=== PATIENT | male | born 1945 | race Caucasian/White ===

== ENCOUNTER 2019-02-06 12:53 | Outpatient (CLI) | payer BC ==
[2019-02-06 16:21] LABS: #Eosinphils 0.2 thou/uL (0.0-0.7); #Lymphocytes 1.2 thou/uL (1.20-3.40); #Monocytes 0.4 thou/uL (0.11-0.59); #Neutrophils 3.7 thou/uL (1.40-6.50); %Basophils 0.1 % (0.0-1.0); %Eosinophils 3.5 % (0.0-10.0); %Lymphocytes 21.6 % (21.0-51.0); %Monocytes 6.4 % (0.0-10.0); %Neutrophils 68.5 % (42.0-75.0); Mean Corpuscular HGB CONC 33.7 g/dL (32.0-36.0); Mean Corpuscular Hemoglobin 32.7 pg (27.0-31.0); Mean Corpuscular Volume 97.1 fL (78.0-98.0); Mean Platelet Volume 9.4 fL (7.4-10.4); Platelet Count 212 thou/uL (130-400); RBC Distribution Width 11.9 % (11.5-14.5); Red Blood Cell (RBC) Count 4.29 mill/uL (4.70-6.10); White Blood Cell (WBC) Count 5.4 thou/uL (4.8-10.8)
[2019-02-06 16:25] LABS: INR-International Normal Ratio 0.9; PTT 33.7 SEC (22.9-36.1); Prothrombin Time 12.5 SEC (12.0-14.7)
[2019-02-06 16:43] LABS: ALT (SGPT) 29 U/L (8-55); AST (SGOT) 33 U/L (5-34); Albumin 4.2 g/dL (3.4-4.8); Alkaline Phosphatase 57 U/L (40-150); Anion Gap 14 mmol/L (10-20); BUN (Urea Nitrogen) 19 mg/dL (8.4-25.7); Bilirubin, Total 0.8 mg/dL (0.2-1.2); Calc. Creatinine Clearance 0 mL/min (70-130); Calcium 9.4 mg/dL (7.8-10.44); Carbon Dioxide 29 mmol/L (23-31); Chloride 102 mmol/L (98-107); Estimated GFR-MDRD 50; Globulin 2.5 g/dL (2.4-3.5); Glucose 99 mg/dL (83-110); Protein, Total 6.7 g/dL (5.8-8.1); Sodium 141 mmol/L (136-145)
== END 2019-02-06 12:54 | disposition home or self-care (01) ==
LOC: LABBT 12:53
PROVIDERS: ATTEND Internal Medicine Cardiovascular Disease
DX: Z01.812 Encounter for preprocedural laboratory examination (principal); I25.10 Atherosclerotic heart disease of native coronary artery without angina pectoris
CPT/HCPCS: 80053; 85025; 85610; 85730

== ENCOUNTER → 2019-02-11 | Day surgery (SDC) | payer BC ==
[2019-02-06 14:16] VITALS: BMI 24.3
[~2019-02-11] MED LIST: Fentanyl 100 MCG/2 ML VIAL ONE; Iopamidol 370 76% 100 ML VIAL ONE; Lidocaine 1% (PF) 30 ML VIAL ONE; Midazolam HCl 2 mg/2 ml Vial ONE
== END ==
LOC: CCL 05:49
PROVIDERS: ATTEND Internal Medicine Cardiovascular Disease
PROC: B2111ZZ Fluoroscopy of Multiple Coronary Arteries using Low Osmolar Contrast (ICD-10-PCS; principal; 2019-02-11)
PROC: 4A023N7 Measurement of Cardiac Sampling and Pressure, Left Heart, Percutaneous Approach (ICD-10-PCS; principal; 2019-02-11)
PROC: B2181ZZ Fluoroscopy of Left Internal Mammary Bypass Graft using Low Osmolar Contrast (ICD-10-PCS; principal; 2019-02-11)
PROC: B2171ZZ Fluoroscopy of Right Internal Mammary Bypass Graft using Low Osmolar Contrast (ICD-10-PCS; principal; 2019-02-11)
DX: I25.119 Atherosclerotic heart disease of native coronary artery with unspecified angina pectoris (principal); I25.82 Chronic total occlusion of coronary artery; E78.00 Pure hypercholesterolemia, unspecified; I10 Essential (primary) hypertension; E78.5 Hyperlipidemia, unspecified; Z95.1 Presence of aortocoronary bypass graft; Z79.82 Long term (current) use of aspirin; Z79.02 Long term (current) use of antithrombotics/antiplatelets; Z79.899 Other long term (current) drug therapy
CPT/HCPCS: 76942; 93455; 99152; 99153; C1769; J1644; J2001; J2250; J3010; Q9967

== ENCOUNTER 2021-06-30 10:11 | Outpatient (CLI) | payer BC | END 2021-06-30 10:12 | disposition home or self-care (01) | LOC: SCSMRI 10:11 | PROVIDERS: ATTEND Family Medicine | DX: M47.26 Other spondylosis with radiculopathy, lumbar region (principal); M43.16 Spondylolisthesis, lumbar region; M25.78 Osteophyte, vertebrae; M16.0 Bilateral primary osteoarthritis of hip; I70.0 Atherosclerosis of aorta | CPT/HCPCS: 72110; 72148 ==

== ENCOUNTER 2021-09-07 08:42 | Outpatient (CLI) | payer BC, MEDICARE ==
[2021-09-07 10:35] LABS: Anion Gap 16 mmol/L (10-20); BUN (Urea Nitrogen) 26 mg/dL (8.4-25.7); Calc. Creatinine Clearance 0 mL/min (70-130); Calcium 8.8 mg/dL (7.8-10.44); Carbon Dioxide 27 mmol/L (23-31); Chloride 103 mmol/L (98-107); Glucose 97 mg/dL (83-110); Hemoglobin 12.6 g/dL (13.5-17.5); Mean Corpuscular HGB CONC 32.1 g/dL (32.0-36.0); Mean Corpuscular Hemoglobin 31.7 pg (27.0-33.0); Mean Corpuscular Volume 98.7 fl (81.2-95.1); Mean Platelet Volume 11.7 fl (7.4-10.4); Platelet Count 194 10x3/uL (150-450); Potassium 5.1 mmol/L (3.5-5.1); RBC Distribution Width 11.7 % (11.5-14.5); Red Blood Cell (RBC) Count 3.98 10x6/uL (4.32-5.72); Sodium 141 mmol/L (136-145)
[2021-09-07 23:00] LABS: SARS-CoV-2 PCR by NAA Not Detected (NotDetected)
== END 2021-09-07 08:43 | disposition home or self-care (01) ==
LOC: LABBT 08:42
PROVIDERS: ATTEND Neurological Surgery
DX: Z01.818 Encounter for other preprocedural examination (principal); M48.062 Spinal stenosis, lumbar region with neurogenic claudication; Z20.822 Contact with and (suspected) exposure to COVID-19
CPT/HCPCS: 80048; 85027; 93005; 93010; U0003; U0005

== ENCOUNTER 2021-09-12 07:37 | Day surgery (SDC) | payer BC, MEDICARE ==
[2021-09-06 14:29] VITALS: BMI 24.3
[2021-09-12] MEDS ORDERED: Fentanyl 250 MCG/5 ML VIAL ONE ×2 (08:55→11:56)
[2021-09-12] MEDS ORDERED: ceFAZolin Sodium (SDC) 2 GM/100 ML BAG ONE (09:11)
[2021-09-12] MEDS ORDERED: Lidocaine 1% PF 5 ML VIAL ONE (09:50)
[2021-09-12] MEDS ORDERED: Dexamethasone 20 MG/5 ML VIAL ONE (09:50)
[2021-09-12] MEDS ORDERED: Ondansetron PF 4 MG/2 ML Vial ONE (09:50)
[2021-09-12] MEDS ORDERED: Rocuronium Bromide 10 MG/ML (10ML VIAL) ONE (09:50)
[2021-09-12] MEDS ORDERED: PROPOFOL 200 MG/20 ML VIAL ONE (09:50)
[2021-09-12] MEDS ORDERED: SUGAMMADEX SODIUM 200 MG/2 ML VIAL ONE (11:05)
[2021-09-12] MEDS ORDERED: Tamsulosin HCl 0.4 MG CAP ONE (11:56)
[2021-09-12] MEDS ORDERED: HYDROcodone/Acetaminophen 5/325 mg Tablet ONE (13:37)
== END 2021-09-12 16:02 | disposition home or self-care (01) ==
LOC: SDC 07:37
PROVIDERS: ATTEND Neurological Surgery
PROC: 01NB0ZZ Release Lumbar Nerve, Open Approach (ICD-10-PCS; principal; 2021-09-12)
DX: M48.062 Spinal stenosis, lumbar region with neurogenic claudication (principal); I51.9 Heart disease, unspecified; Z79.899 Other long term (current) drug therapy; Z95.1 Presence of aortocoronary bypass graft
CPT/HCPCS: 76000; C1713; J0690; J1100; J2405; J2704; J3010; J3370

== ENCOUNTER 2022-10-20 09:03 | Outpatient (CLI) | payer BC | END 2022-10-20 09:04 | disposition home or self-care (01) | LOC: BICCT 09:03 | PROVIDERS: ATTEND Physician Assistant | DX: H90.72 Mixed conductive and sensorineural hearing loss, unilateral, left ear, with unrestricted hearing on the contralateral side (principal); H73.892 Other specified disorders of tympanic membrane, left ear | CPT/HCPCS: 70480 ==

== ENCOUNTER 2023-02-02 14:11 | Outpatient (CLI) | payer BC ==
[~2023-02-02 14:11] MED LIST changes: -Fentanyl 100 MCG/2 ML VIAL ONE; -Iopamidol 370 76% 100 ML VIAL ONE; -Lidocaine 1% (PF) 30 ML VIAL ONE; +Magnevist 469MG/ML 20 ML VIAL ONE; -Midazolam HCl 2 mg/2 ml Vial ONE
== END 2023-02-02 14:12 | disposition home or self-care (01) ==
LOC: BICMRI 14:11
PROVIDERS: ATTEND Neurological Surgery
DX: M48.062 Spinal stenosis, lumbar region with neurogenic claudication (principal); M47.816 Spondylosis without myelopathy or radiculopathy, lumbar region; Z98.890 Other specified postprocedural states; M65.9 Synovitis and tenosynovitis, unspecified
CPT/HCPCS: 72158; 82565; A9579

== ENCOUNTER 2023-05-07 09:46 | Outpatient (CLI) | payer BC ==
[2023-05-07 11:10] LABS: Hematocrit 38.5 % (38.8-50.0); Hemoglobin 13.4 g/dL (13.5-17.5); Mean Corpuscular HGB CONC 34.8 g/dL (32.0-36.0); Mean Corpuscular Hemoglobin 33.9 pg (27.0-33.0); Mean Corpuscular Volume 97.5 fl (81.2-95.1); Mean Platelet Volume 11.3 fl (7.4-10.4); Platelet Count 187 10x3/uL (150-450); RBC Distribution Width 11.9 % (11.5-14.5); Red Blood Cell (RBC) Count 3.95 10x6/uL (4.32-5.72); White Blood Cell (WBC) Count 6.7 10x3/uL (3.5-10.5)
[2023-05-07 11:29] LABS: Anion Gap 15 mmol/L (10-20); BUN (Urea Nitrogen) 19 mg/dL (8.4-25.7); Calc. Creatinine Clearance 0 mL/min (70-130); Calcium 8.4 mg/dL (7.8-10.44); Carbon Dioxide 26 mmol/L (23-31); Chloride 104 mmol/L (98-107); Estimated GFR 54; Glucose 117 mg/dL (83-110); Potassium 4.5 mmol/L (3.5-5.1); Sodium 140 mmol/L (136-145)
== END 2023-05-07 09:47 | disposition home or self-care (01) ==
LOC: LABBT 09:46
PROVIDERS: ATTEND Neurological Surgery
DX: Z01.818 Encounter for other preprocedural examination (principal); M54.16 Radiculopathy, lumbar region
CPT/HCPCS: 80048; 85027; 93005; 93010

== ENCOUNTER 2023-05-14 05:55 | Observation (INO) | payer MEDICARE, BC ==
[2023-05-14] MEDS ORDERED: Sodium Chloride 0.9% 100 ML ONE (06:01)
[2023-05-14] MEDS ORDERED: CEFAZOLIN 2 GM VIAL ONE (06:01)
[2023-05-14] MEDS ORDERED: Vancomycin 1 GM VIAL ONE (06:39)
[2023-05-14] MEDS ORDERED: fentaNYL PF 100 MCG/2 ML SYRINGE ONE (07:14)
[2023-05-14] MEDS ORDERED: HYDROmorphone 0.5 MG/0.5 ML SYRINGE ONE ×3 (07:14→08:58)
[2023-05-14] MEDS ORDERED: Promethazine 25 MG TAB PO PRN (07:15)
[2023-05-14] MEDS ORDERED: Morphine 2 MG/ML VIAL SLOW IVP PRN (07:15)
[2023-05-14] MEDS ORDERED: Mag-Al 1200 mg/1200 mg/30 ML UDCUP PO PRN (07:15)
[2023-05-14] MEDS ORDERED: traMADol HCl 50 MG TAB PO PRN (07:15)
[2023-05-14] MEDS ORDERED: Ondansetron PF 4 MG/2 ML Vial IVP PRN (07:15)
[2023-05-14] MEDS ORDERED: Acetaminophen/Codeine 30-300mg Tablet PO PRN (07:15)
[2023-05-14] MEDS ORDERED: Acetaminophen 325 MG TAB PO PRN (07:15)
[2023-05-14] MEDS ORDERED: Milk Of Magnesia 30 ML UDCUP PO PRN (07:15)
[2023-05-14] MEDS ORDERED: traZODone HCl 50 MG TAB PO PRN (07:18)
[2023-05-14] MEDS ORDERED: PHENYLEPHRINE-NS 100 MCG/ML 10 ML SYRINGE ONE (07:21)
[2023-05-14] MEDS ORDERED: Lidocaine 1% PF 5 ML VIAL ONE (07:21)
[2023-05-14] MEDS ORDERED: Rocuronium Bromide 10 MG/ML (10ML VIAL) ONE (07:21)
[2023-05-14] MEDS ORDERED: ePHEDrine Sulfate 50 MG/10 ML VIAL ONE (07:21)
[2023-05-14] MEDS ORDERED: Dexamethasone 20 MG/5 ML VIAL ONE (07:21)
[2023-05-14] MEDS ORDERED: Ondansetron PF 4 MG/2 ML Vial ONE (07:21)
[2023-05-14] MEDS ORDERED: PROPOFOL 200 MG/20 ML VIAL ONE (07:21)
[2023-05-14] MEDS ORDERED: SUGAMMADEX SODIUM 200 MG/2 ML VIAL ONE (08:16)
[2023-05-14] MEDS ORDERED: Promethazine HCl 25 MG/ML VIAL IM PRN (08:28)
[2023-05-14] MEDS ORDERED: Ondansetron HCl/PF 4 MG/2 ML Vial IVP PRN (08:28)
[2023-05-14] MEDS ORDERED: HYDROmorphone 2 MG/ML VIAL SLOW IVP PRN (08:28)
[2023-05-14] MEDS ORDERED: PACU-Morphine 4MG/ML VIAL SLOW IVP PRN (08:28)
[2023-05-14] MEDS ORDERED: fentaNYL 50 mcg/mL 1 mL Vial ONE ×3 (09:12→10:02)
[2023-05-14] MEDS: Sodium Chloride 0.9% 1,000 ML IV SCH ×2 (10:51→21:14)
[2023-05-14 11:12] VITALS: BMI 26.5
[2023-05-14] MEDS: Atenolol 25 MG TAB PO SCH (11:26)
[2023-05-14] MEDS: Hydrochlorothiazide 25 MG TAB PO SCH (11:26)
[2023-05-14] MEDS: Lisinopril 10 MG TAB PO SCH (11:27)
[2023-05-14] MEDS: Ranolazine 500 MG ER.TAB PO SCH ×2 (11:27→20:46)
[2023-05-14] MEDS: Isosorbide Mononitrate 30 MG ER.TAB PO SCH (11:27)
[2023-05-14] MEDS: Cyclobenzaprine 10 MG TAB PO PRN ×2 (12:53→20:46)
[2023-05-14] MEDS: CEFAZOLIN 2 GM in Sodium Chloride 0.9% 100 ML IVPB SCH ×2 (14:13→20:47)
[2023-05-14] MEDS: Acetaminophen/Codeine 30-300mg Tablet PO PRN ×2 (14:26→18:28)
[2023-05-14] MEDS ORDERED: FLU VACC QS2023(65UP)/MF59C/PF 60 MCG/0.5 ML SYRINGE IM ONE (15:00)
[2023-05-14] MEDS ORDERED: Pregabalin 50 MG CAP PO SCH (21:00)
[2023-05-14] MEDS ORDERED: Pregabalin 75 MG CAP PO SCH (21:00)
[2023-05-14 23:35] VITALS: TEMP 98.1
[2023-05-15] MEDS: CEFAZOLIN 2 GM in Sodium Chloride 0.9% 100 ML IVPB SCH (06:26)
[2023-05-15 08:01] VITALS: BP 134/68
[2023-05-15] MEDS: Atenolol 25 MG TAB PO SCH (09:11)
[2023-05-15] MEDS: Lisinopril 10 MG TAB PO SCH (09:12)
[2023-05-15] MEDS: Ranolazine 500 MG ER.TAB PO SCH (09:12)
[2023-05-15] MEDS: Isosorbide Mononitrate 30 MG ER.TAB PO SCH (09:12)
[2023-05-15] MEDS: Hydrochlorothiazide 25 MG TAB PO SCH (09:12)
[2023-05-15] MEDS: Acetaminophen/Codeine 30-300mg Tablet PO PRN (09:13)
== END 2023-05-15 11:00 | disposition home or self-care (01) ==
LOC: SDC 05:55 → T4-A 10:27
PROVIDERS: ADMIT Neurological Surgery; ATTEND Neurological Surgery
PROC: 01NB0ZZ Release Lumbar Nerve, Open Approach (ICD-10-PCS; principal; 2023-05-14)
PROC: 0SG0071 Fusion of Lumbar Vertebral Joint with Autologous Tissue Substitute, Posterior Approach, Posterior Column, Open Approach (ICD-10-PCS; 2023-05-14)
DX: M48.061 Spinal stenosis, lumbar region without neurogenic claudication (principal); M43.16 Spondylolisthesis, lumbar region; M51.16 Intervertebral disc disorders with radiculopathy, lumbar region; I10 Essential (primary) hypertension; I25.10 Atherosclerotic heart disease of native coronary artery without angina pectoris; Z95.5 Presence of coronary angioplasty implant and graft
CPT/HCPCS: 90471; 90694; C1713; C1889; G0008; J1100; J1170; J2272; J2405; J2704; J3010; J3370; J3490; J7050